=== PATIENT | male | born 1935 | race Asian ===

== ENCOUNTER → 2016-05-29 | Outpatient (CLI) | payer OTHER ==
[~2016-05-29] MED LIST: DIAVAN; LIPITOR; METFORMIN
[2016-05-29 09:54] LABS: Basophils # (auto) 0 uL; Basophils % (auto) 0.8 % (0.0-2.0); Eosinophils # (auto) 0.3 uL; Eosinophils % (auto) 6.2 % (0.0-7.0); Hematocrit 45.9 % (41.0-53.0); Hemoglobin 14.8 g/dL (13.5-17.5); Lymphocytes # (auto) 1.4 uL; Lymphocytes % (auto) 25.9 % (10.0-50.0); Mean Corpuscular Hemoglobin 30.4 pg (28.0-32.0); Mean Corpuscular Hgb Conc. 32.3 g/dL (32.0-36.0); Mean Corpuscular Volume 94.3 fL (80.0-100.0); Mean Platelet Volume 8.3 fL (7.4-10.4); Monocytes # (auto) 0.4 uL; Monocytes % (auto) 7.6 % (0.0-12.0); Neutrophils # (auto) 3.2 uL; Neutrophils % (auto) 59.5 % (37.0-80.0); Platelet Count (auto) 210 10^3/uL (140-450); Red Cell Distribution Width 13.7 % (11.6-16.0); White Blood Cell 5.4 10^3/uL (4.4-10.8)
[2016-05-29 10:03] LABS: Urine Bilirubin Negative (Negative); Urine Blood Negative /uL (Negative); Urine Color Yellow (Yellow); Urine Glucose Normal (Normal); Urine Hyaline Cast FEW /lpf (0 - 2); Urine Ketone Negative (Negative); Urine Mucus FEW (None Seen); Urine Nitrite Negative (Negative); Urine RBC <1 /hpf (0 - 3); Urine Squamous Epithelial Cell FEW /hpf (<5); Urine Urobilinogen Normal (Negative)
[2016-05-29 10:12] LABS: Albumin 4.2 g/dL (3.4-5.0); BUN/Creatinine Ratio 14.8; Bilirubin, Total 0.7 mg/dL (0.2-1.0); Calcium 9.3 mg/dL (8.5-10.1); Potassium 3.8 mmol/L (3.5-5.1); Total Protein 8.1 g/dL (6.4-8.2)
== END | disposition home or self-care (01) ==
LOC: LAB 08:28
PROVIDERS: ATTEND Internal Medicine
DX: E11.21 Type 2 diabetes mellitus with diabetic nephropathy (principal); I25.10 Atherosclerotic heart disease of native coronary artery without angina pectoris
CPT/HCPCS: 36415; 80053; 80061; 81001; 82043; 82607; 83036; 84153; 84439; 84443; 85025; 85049; 85652

== ENCOUNTER → 2017-05-27 | Outpatient (CLI) | payer OTHER ==
[2017-05-27 07:40] LABS: Basophils # (auto) 0.1 uL; Basophils % (auto) 1.1 % (0.0-2.0); Eosinophils # (auto) 0.4 uL; Hematocrit 40.8 % (41.0-53.0); Hemoglobin 13.7 g/dL (13.5-17.5); Lymphocytes # (auto) 1.5 uL; Lymphocytes % (auto) 27.2 % (10.0-50.0); Mean Corpuscular Hemoglobin 31.8 pg (28.0-32.0); Mean Corpuscular Hgb Conc. 33.7 g/dL (32.0-36.0); Mean Corpuscular Volume 94.3 fL (80.0-100.0); Monocytes # (auto) 0.5 uL; Monocytes % (auto) 8.8 % (0.0-12.0); Neutrophils % (auto) 55.9 % (37.0-80.0); Nucleated Red Blood Cells % 0.1 %; Platelet Count (auto) 219 10^3/uL (140-450); Red Blood Cells 4.32 10^6/uL (4.5-5.90); Red Cell Distribution Width 13.7 % (11.8-14.3); White Blood Cell 5.4 10^3/uL (4.4-10.8)
[2017-05-27 08:05] LABS: Albumin 3.8 g/dL (3.4-5.0); BUN/Creatinine Ratio 18.2; Bilirubin, Total 0.6 mg/dL (0.2-1.0); Calcium 9.4 mg/dL (8.5-10.1); Potassium 3.9 mmol/L (3.5-5.1); Total Protein 7.6 g/dL (6.4-8.2)
== END | disposition home or self-care (01) ==
LOC: LAB 07:08
PROVIDERS: ATTEND Internal Medicine
DX: E11.9 Type 2 diabetes mellitus without complications (principal); E78.00 Pure hypercholesterolemia, unspecified
CPT/HCPCS: 36415; 80053; 80061; 83036; 85025

== ENCOUNTER → 2018-09-21 | Outpatient (CLI) | payer OTHER ==
[2018-09-21 14:12] LABS: Albumin 3.6 g/dL (3.4-5.0); BUN/Creatinine Ratio 19.2; Calcium 8.7 mg/dL (8.5-10.1); Potassium 3.9 mmol/L (3.5-5.1)
[2018-09-21 14:14] LABS: Bilirubin, Total 0.3 mg/dL (0.2-1.0); Total Protein 7.1 g/dL (6.4-8.2)
== END | disposition home or self-care (01) ==
LOC: LAB 13:19
PROVIDERS: ATTEND Internal Medicine
DX: E11.9 Type 2 diabetes mellitus without complications (principal); I10 Essential (primary) hypertension
CPT/HCPCS: 36415; 80053; 83036

== ENCOUNTER 2019-01-12 13:55 | Inpatient (IN) | payer OTHER | END 2019-01-16 10:54 | disposition home health service (06) | LOC: TELE-WESTW 13:55 | DX: I62.9 Nontraumatic intracranial hemorrhage, unspecified (principal); I63.9 Cerebral infarction, unspecified; E87.1 Hypo-osmolality and hyponatremia; I10 Essential (primary) hypertension; E11.22 Type 2 diabetes mellitus with diabetic chronic kidney disease; I12.9 Hypertensive chronic kidney disease with stage 1 through stage 4 chronic kidney disease, or unspecified chronic kidney disease; I25.10 Atherosclerotic heart disease of native coronary artery without angina pectoris; N18.9 Chronic kidney disease, unspecified; Z95.1 Presence of aortocoronary bypass graft ==

== ENCOUNTER → 2019-02-15 | Outpatient (CLI) | payer OTHER ==
[~2019-02-15] MED LIST changes: +ASPI-231 PO; +ASPI-404 PO; +CALC500C71 PO; +CALC667C PO; -DIAVAN; +GLIM1TAB2 PO; +GLUC-163 PO; +GLUC500T48 PO; +GLYB2.5T8 PO; -LIPITOR; +LOSA-39 PO; +LOVA40TA72 PO; +METF-370 PO; -METFORMIN
== END | disposition home or self-care (01) ==
LOC: LAB 08:56
PROVIDERS: ATTEND Internal Medicine
DX: I69.30 Unspecified sequelae of cerebral infarction (principal)
CPT/HCPCS: 36415; 82565; 84520

== ENCOUNTER 2019-03-15 18:15 | Inpatient (IN) | payer OTHER ==
[~2019-03-15] VITALS: Ht 162.6 cm; Wt 61.7 kg
[~2019-03-15 18:15] MED LIST changes: -ASPI-404 PO; -CALC667C PO; -GLIM1TAB2 PO; -GLUC-163 PO; -LOSA-39 PO
[2019-03-15 18:39] LABS: Basophils # (auto) 0.1 uL; Basophils % (auto) 1.1 % (0.0-2.0); Eosinophils # (auto) 0.3 uL; Eosinophils % (auto) 3.8 % (0.0-7.0); Hematocrit 35.8 % (41.0-53.0); Hemoglobin 12.3 g/dL (13.5-17.5); Lymphocytes # (auto) 1.1 uL; Lymphocytes % (auto) 16.5 % (10.0-50.0); Mean Corpuscular Hemoglobin 32.1 pg (28.0-32.0); Mean Corpuscular Hgb Conc. 34.4 g/dL (32.0-36.0); Mean Corpuscular Volume 93.5 fL (80.0-100.0); Monocytes # (auto) 0.5 uL; Monocytes % (auto) 7.8 % (0.0-12.0); Neutrophils # (auto) 4.9 uL; Neutrophils % (auto) 70.8 % (37.0-80.0); Platelet Count (auto) 205 10^3/uL (140-450); Red Blood Cells 3.83 10^6/uL (4.5-5.90); Red Cell Distribution Width 14.1 % (11.8-14.3); White Blood Cell 6.9 10^3/uL (4.4-10.8)
[2019-03-15 18:56] LABS: Albumin 3.9 g/dL (3.4-5.0); Calcium 9.3 mg/dL (8.5-10.1)
[2019-03-15 19:00] LABS: BUN/Creatinine Ratio 15.5; Bilirubin, Total 0.4 mg/dL (0.2-1.0); Total Protein 7.7 g/dL (6.4-8.2)
[2019-03-15 19:01] LABS: Magnesium 1.6 mg/dL (1.6-2.6)
[2019-03-15] MEDS ORDERED: MORPHINE SULF INJ 2 MG/ML SYRINGE 1ML IV ONE (20:00)
[2019-03-15] MEDS ORDERED: ONDANSETRON HCL 4 MG/2 ML VIAL IV ONE (20:00)
[2019-03-15] MEDS ORDERED: cloNIDine HCL 0.1 MG TAB PO ONE (20:00)
[2019-03-15] MEDS ORDERED: ONDANSETRON HCL 4 MG/2 ML VIAL IV PRN (21:30)
[2019-03-15] MEDS ORDERED: DOCUSATE SOD 100 MG CAP PO PRN (21:30)
[2019-03-15] MEDS ORDERED: TEMAZEPAM 15 MG CAP PO PRN (21:30)
[2019-03-15] MEDS ORDERED: DEXTROSE (50%) 50ML SYRG IV PRN (21:30)
[2019-03-15] MEDS ORDERED: ACETAMINOPHEN 325 MG TAB PO PRN (21:30)
[2019-03-15] MEDS: hydrALAZINE HCL 25 MG TAB PO SCH ×2 (22:00→22:40)
[2019-03-15 22:10] VITALS: BP 167/82
--- NOTE | 2019-03-15 22:10 | NUR ---
MS admit from ER KASIE ALLEN admitted to MS after SBAR received. Patient oriented to SHRUTHI LANE RN primary RN, unit med surg, room 18-A, bed, and unit policies regarding patient care and visiting hours. Patient weighed by bedscale and encouraged to call if he needs something. All questions and concerns addressed, patient verbalized understanding. Note: at bedside. Fall and safety precautions in place. Call light within reach.
[2019-03-15] MEDS: FAMOTIDINE 20 MG TAB PO SCH (22:40)
[2019-03-15] MEDS: ATORVASTATIN 20 MG TAB PO SCH (22:40)
[2019-03-15 23:40] VITALS: BP 103/46
[2019-03-16] MEDS: InsuLIN REG 1unit/0.01ml Soln (100units/ml) SC SCH ×5 (00:06→23:45)
[2019-03-16] MEDS: ACCU-CHEK COMFORT CURVE STRIP VI SCH ×5 (00:07→23:46)
--- NOTE | 2019-03-16 00:07 | NUR ---
HOSPITALIST Paged hospitalist regarding patient's request for pain medication. Awaiting call back
--- NOTE | 2019-03-16 01:14 | NUR ---
HOSPITALIST Received call back from hospitalist Tiago Paiz NP. New orders received, read back and verified. Will input and carry out
[2019-03-16] MEDS: HYDROcodone-ACET 5/325MG TAB PO PRN ×2 (01:39→08:39)
--- NOTE | 2019-03-16 01:55 | NUR ---
URINE Urine sample obtained and sent to lab via bullet.
[2019-03-16 02:00] LABS: Urine WBC None Seen /hpf (0 - 3)
[2019-03-16 02:38] LABS: Urine Bacteria NONE SEEN /hpf (None Seen); Urine Blood Negative /uL (Negative); Urine Hyaline Cast FEW /lpf (0 - 2); Urine Specific Gravity 1.006 (1.001-1.035)
[2019-03-16] MEDS ORDERED: LOSA-39 PO (03:16)
[2019-03-16] MEDS ORDERED: CALC667C PO (03:16)
[2019-03-16] MEDS ORDERED: GLUC-163 PO (03:16)
[2019-03-16] MEDS ORDERED: METF-370 PO (03:16)
[2019-03-16] MEDS ORDERED: ASPI-404 PO (03:16)
[2019-03-16] MEDS ORDERED: LOVA40TA72 PO (03:16)
[2019-03-16] MEDS ORDERED: GLIM1TAB2 PO (03:16)
[2019-03-16 05:18] VITALS: BP 104/47
--- NOTE | 2019-03-16 08:15 | NUR ---
Opening Note Assumed care of patient. He is A & O x4, no s/s of distress at this time. Patient c/o pain to the left hip. POC discussed with patient, he agrees. Patient has not had a bowel movement in a week, he is requesting Dulcolax that he takes at home. Patient is also requesting a stronger pain medication for his hip pain, it only hurts when he moves. Bed is in lowest locked position, call light within reach, bed rails up x2, bed alarm on. Will continue to monitor Q1h and PRN.
[2019-03-16 09:00] VITALS: BP 164/80
[2019-03-16] MEDS: FAMOTIDINE 20 MG TAB PO SCH ×2 (09:19→21:41)
[2019-03-16] MEDS: HCTZ 25 MG TAB PO SCH (09:21)
[2019-03-16] MEDS: hydrALAZINE HCL 25 MG TAB PO SCH ×2 (09:21→21:41)
[2019-03-16] MEDS: ENOXAPARIN SOD 40 MG/0.4 ML SYRINGE SC SCH (09:22)
[2019-03-16] MEDS: LOSARTAN POTASSIUM 50 MG TAB PO SCH (09:22)
--- NOTE | 2019-03-16 09:38 | NUR ---
Dr. Maddox at bedside Will upgrade patient to TELE, orders received, read back and verified. MD will order stool softener and pain medication.
[2019-03-16] MEDS ORDERED: BISACODYL 5 MG EC TAB PO ONE (10:30)
[2019-03-16] MEDS ORDERED: POLYETHYLENE GLYCOL 17 GM PWDR PO ONE (10:30)
[2019-03-16] MEDS ORDERED: BISACODYL 5 MG EC TAB PO PRN (10:30)
[2019-03-16] MEDS ORDERED: NITROGLYCERIN 0.4 MG SL TAB SL PRN ×2 (10:45)
[2019-03-16] MEDS ORDERED: MORPHINE SULF INJ 2 MG/ML SYRINGE 1ML IV PRN ×3 (10:45→11:00)
[2019-03-16] MEDS ORDERED: ASPirin 81 mg TAB PO ONE (11:15)
[2019-03-16 11:18] LABS: Albumin 3.6 g/dL (3.4-5.0); Potassium 4.2 mmol/L (3.5-5.1)
[2019-03-16 11:21] LABS: Bilirubin, Total 0.6 mg/dL (0.2-1.0); Total Protein 7.1 g/dL (6.4-8.2)
[2019-03-16 11:36] LABS: Free T4 (Free Thyroxine) 1.09 ng/dL (0.89-1.76)
[2019-03-16 11:37] LABS: Folate (Folic Acid) 14.53 ng/mL (5.38-24)
[2019-03-16] MEDS: MAGNESIUM SULFATE 1GM/100ML 100 ML IV SCH ×3 (11:38→15:56)
[2019-03-16] MEDS: traMADol HCL 50 MG TAB PO PRN ×2 (11:39→18:04)
[2019-03-16 11:45] LABS: Magnesium 1.8 mg/dL (1.6-2.6)
[2019-03-16] MEDS ORDERED: IOHEXOL 350 MG/ML 100ML IJ ONE (12:42)
[2019-03-16 13:00] VITALS: BP 130/60
[2019-03-16] MEDS: SODIUM CHLOR 0.9% PF (SALINE LOCK) 10ML VIAL/SYR IV SCH ×2 (14:00→22:00)
--- NOTE | 2019-03-16 14:28 | NUR ---
Placed patient on tele monitor Patient on tele box 42, SR with 1st degree AVB with BBB, HR 57. Will continue to monitor per Dr. Maddox orders.
--- NOTE | 2019-03-16 16:51 | NUR ---
SS consult to discuss d/c planning for help at home with the spouse but no answer to call. Per pt spouse will be back on tomorrow. SS will followup at that time. Addendum: 03/16/19 at 1652 by CAITLIN FOUNTAIN SS Amended: Links added.
[2019-03-16 17:00] VITALS: BP 145/69
--- NOTE | 2019-03-16 19:15 | NUR ---
Opening Shift Note Assumed care of patient, AOx4. No S/S of distress/SOB. Fall and safety precautions initiated. Call light within reach. Instructed on POC and to call for assist PRN, will continue to monitor for changes Q1hr and PRN.
[2019-03-16] MEDS: ATORVASTATIN 20 MG TAB PO SCH (21:41)
[2019-03-16 21:58] VITALS: BP 139/71
[2019-03-17] VITALS (7 sets, daily range): BP systolic 131–189; BP diastolic 63–83
[2019-03-17 04:08] LABS: RPR Non Reactive (Non Reactive)
[2019-03-17] MEDS: InsuLIN REG 1unit/0.01ml Soln (100units/ml) SC SCH ×4 (06:00→23:59)
[2019-03-17] MEDS: ACCU-CHEK COMFORT CURVE STRIP VI SCH ×4 (06:53→23:59)
[2019-03-17] MEDS: SODIUM CHLOR 0.9% PF (SALINE LOCK) 10ML VIAL/SYR IV SCH ×3 (06:54→22:53)
--- NOTE | 2019-03-17 08:10 | NUR ---
Opening Note Assumed care of patient, he is A& O x4, no s/s of distress at this time. POC discussed with patient. C/O pain to the left hip, MD aware, will medicate per orders. Patient is otherwise comfortable at this time. Bed is in lowest, locked position, call light within reach, bed rails up x2, bed alarm on. Personal belonging within reach. Will continue to monitor Q1h and PRN.
[2019-03-17] MEDS: POLYETHYLENE GLYCOL 17 GM PWDR PO SCH (10:00)
[2019-03-17] MEDS: FAMOTIDINE 20 MG TAB PO SCH ×2 (10:35→21:26)
[2019-03-17] MEDS: ASPirin 81 mg TAB PO SCH (10:35)
[2019-03-17] MEDS: traMADol HCL 50 MG TAB PO PRN ×2 (10:36→16:47)
[2019-03-17] MEDS: hydrALAZINE HCL 25 MG TAB PO SCH ×2 (10:42→21:26)
[2019-03-17] MEDS: LOSARTAN POTASSIUM 50 MG TAB PO SCH (10:43)
[2019-03-17] MEDS: HCTZ 25 MG TAB PO SCH (10:45)
[2019-03-17] MEDS: ENOXAPARIN SOD 40 MG/0.4 ML SYRINGE SC SCH (10:50)
[2019-03-17] MEDS: cloNIDine HCL 0.1 MG TAB PO PRN ×2 (13:35→22:48)
--- NOTE | 2019-03-17 13:35 | NUR ---
Clonidine PRN given. Patient BP 202/93, HR 85, will page Dr. Maddox
--- NOTE | 2019-03-17 13:42 | NUR ---
Blood pressure elevated, paged Dr. Maddox, spoke to Dr. Maddox BP 202/93, HR 85, patient with no s/s of distress at this time. Will medicate per doctors orders.
[2019-03-17] MEDS: METOPROLOL TARTRATE 1MG/1ML-5ML VIAL IV PRN (14:15)
--- NOTE | 2019-03-17 14:16 | NUR ---
Metoprolol IV given per orders. BP prior to administration 203/85, HR 85, BP at 1428 192/81 HR 70. Will continue to monitor.
--- NOTE | 2019-03-17 15:00 | NUR ---
Recheck BP 170/78 HR 65, patient with no s/s of distress, equal strength in both hands, no s/s of changes from baseline. Will continue to monitor, and page Dr. Maddox with follow up.
--- NOTE | 2019-03-17 16:18 | NUR ---
Dr. Maddox returned page Notified regarding BP elevation 184/86, HR 54. Orders received, read back and verified. Will medicate per orders.
--- NOTE | 2019-03-17 16:28 | NUR ---
re-assessment I have called and left a message for patients ioana Everett regarding ss consult for needing help at home. Waiting for return call now. Addendum: 03/17/19 at 1628 by Liliane JOYA Amended: Links added.
[2019-03-17] MEDS ORDERED: NIFEdipine ER 30 MG TAB PO ONE (16:30)
[2019-03-17] MEDS ORDERED: CARVEDILOL 3.125 MG TAB PO ONE (16:45)
--- NOTE | 2019-03-17 19:40 | NUR ---
Opening Shift Note Assumed care of patient, awake and alert x4. Patient is complaining of pain to left hip (pain scale 9/10), will medicate patient as ordered by MD. Patient denies headache, dizziness, or blurry vision at this time. Instructed on plan of care and to call for assistance as needed, patient verbalized understanding. Bed is locked in lowest position, side rails x 2 are up, call light is within reach, and bed alarm is on.
--- NOTE | 2019-03-17 20:00 | NUR ---
HOSPITALIST PAGED RE: PAIN MEDICATION Hospitalist paged regarding pain medication. Patient is complaining of 9/10 sharp pain to left hip. Patient has already been medicated with PRN Tramadol and patient reports that the PRN Tramadol pain medication is not alleviating his pain. Patient is requesting something stronger. Awaiting call back.
[2019-03-17] MEDS ORDERED: MORPHINE SULFATE 4 MG/ML SYR/VIAL IV ONE (20:45)
[2019-03-17] MEDS: ATORVASTATIN 20 MG TAB PO SCH (21:26)
[2019-03-17] MEDS: CARVEDILOL 3.125 MG TAB PO SCH (21:29)
[2019-03-18 05:00] VITALS: BP 140/59
[2019-03-18] MEDS: traMADol HCL 50 MG TAB PO PRN ×2 (05:11→19:42)
[2019-03-18] MEDS: ACCU-CHEK COMFORT CURVE STRIP VI SCH ×4 (06:21→23:38)
[2019-03-18] MEDS: InsuLIN REG 1unit/0.01ml Soln (100units/ml) SC SCH ×4 (06:21→23:38)
[2019-03-18] MEDS: SODIUM CHLOR 0.9% PF (SALINE LOCK) 10ML VIAL/SYR IV SCH ×3 (06:21→22:00)
[2019-03-18 06:31] LABS: Basophils # (auto) 0 uL; Basophils % (auto) 0.7 % (0.0-2.0); Eosinophils # (auto) 0.4 uL; Eosinophils % (auto) 7.5 % (0.0-7.0); Hematocrit 35.1 % (41.0-53.0); Hemoglobin 12.1 g/dL (13.5-17.5); Lymphocytes % (auto) 18.3 % (10.0-50.0); Mean Corpuscular Hemoglobin 31.8 pg (28.0-32.0); Mean Corpuscular Hgb Conc. 34.4 g/dL (32.0-36.0); Mean Corpuscular Volume 92.6 fL (80.0-100.0); Monocytes # (auto) 0.6 uL; Monocytes % (auto) 11.3 % (0.0-12.0); Neutrophils # (auto) 3.5 uL; Neutrophils % (auto) 62.2 % (37.0-80.0); Nucleated Red Blood Cells % 0.1 %; Platelet Count (auto) 226 10^3/uL (140-450); Red Blood Cells 3.79 10^6/uL (4.5-5.90); Red Cell Distribution Width 14.1 % (11.8-14.3); White Blood Cell 5.7 10^3/uL (4.4-10.8)
--- NOTE | 2019-03-18 06:56 | NUR ---
IV INSERTION IV access obtained, via clean sterile technique by inserting 22 gauge catheter at right forearm after 1 attempt. IV secured properly. No trauma to site. Patient tolerated well. IV REMOVAL IV to left AC DC'd with clean sterile technique, catheter fully intact. Pressure dressing applied to site. Patient tolerated well.
[2019-03-18 07:07] LABS: BUN/Creatinine Ratio 15.7; Calcium 9.2 mg/dL (8.5-10.1)
[2019-03-18 09:00] VITALS: BP 161/69
[2019-03-18] MEDS ORDERED: HCTZ 25 MG TAB PO SCH (10:00)
[2019-03-18] MEDS: ENOXAPARIN SOD 40 MG/0.4 ML SYRINGE SC SCH (10:30)
[2019-03-18] MEDS: POLYETHYLENE GLYCOL 17 GM PWDR PO SCH (10:30)
[2019-03-18] MEDS: LOSARTAN POTASSIUM 50 MG TAB PO SCH (10:31)
[2019-03-18] MEDS: CARVEDILOL 3.125 MG TAB PO SCH ×2 (10:32→21:14)
[2019-03-18] MEDS: FAMOTIDINE 20 MG TAB PO SCH ×2 (10:32→21:14)
[2019-03-18] MEDS: hydrALAZINE HCL 25 MG TAB PO SCH ×2 (10:33→21:13)
[2019-03-18] MEDS: ASPirin 81 mg TAB PO SCH (10:33)
[2019-03-18 13:00] VITALS: BP 146/80
[2019-03-18] MEDS ORDERED: BISACODYL 5 MG EC TAB PO ONE (13:00)
[2019-03-18] MEDS ORDERED: SODIUM CHLORIDE 0.9% 1,000 ML IV SCH (13:15)
[2019-03-18] MEDS ORDERED: NIFEdipine ER 30 MG TAB PO ONE (13:30)
--- NOTE | 2019-03-18 14:55 | NUR ---
re-assessment I spoke with patients Marguerite at bedside. Per Michelet she is needing extra help at home. I have provided patient and Marguerite resources for [facility], Private pay caregivers, and a place for mom. Patient will also need home health for PT. Marguerite is satisfied with home Pt on discharge. Marguerite verbalized understanding and agreed to discharge plan home. Addendum: 03/23/19 at 1701 by Liliane JOYA Amended: Links added.
--- NOTE | 2019-03-18 16:17 | NUR ---
D/C held Patient was originally going to be discharged today, but his sodium is a little low so a new order for NS at 75 was written. was at bedside and was notified that D/C is being held at this time.
[2019-03-18 17:00] VITALS: BP 167/79
[2019-03-18] MEDS: METOPROLOL TARTRATE 1MG/1ML-5ML VIAL IV PRN (19:13)
[2019-03-18 20:00] VITALS: BP 185/91
--- NOTE | 2019-03-18 20:00 | NUR ---
Opening Shift Note Assumed care of patient, awake and alert. No S/S of distress/SOB. Patient reports 10/10 headache and reports dizziness. Patient's blood pressure is elevated at this time. Will continue to monitor blood pressure and will medicate for hypertension and for pain per MD order. Instructed on POC and to call for assist PRN, will continue to monitor for changes Q1hr and PRN.
[2019-03-18] MEDS: ATORVASTATIN 20 MG TAB PO SCH (21:14)
[2019-03-18 22:00] VITALS: BP 185/91
[2019-03-18] MEDS: cloNIDine HCL 0.1 MG TAB PO PRN (22:27)
--- NOTE | 2019-03-18 23:01 | NUR ---
HOSPITALIST PAGED RE: PAIN MEDICATION Hospitalist paged regarding pain medication. Patient is complaining of 9/10 sharp pain to left hip. Patient has already been medicated with PRN Tramadol and is still complaining of pain. Patients most recent blood pressure was 161/89, heart rate:84. Patient has already been medicated for blood pressure. Awaiting call back.
--- NOTE | 2019-03-18 23:33 | NUR ---
SPOKE TO HOSPITALIST RE: PAIN MEDICATION Notified SIMONA Paiz that patient is complaining of pain to left hip (pain scale 9/10) and patient has already been medicated for pain with PRN tramadol. Orders received for [place] 7.5/325 mg PO x1. Order repeated and verified. Will carry out order as received.
[2019-03-18] MEDS ORDERED: HYDROcodone-ACET 7.5/325MG TAB PO ONE (23:45)
[2019-03-19 05:00] VITALS: BP 140/73
[2019-03-19] MEDS: SODIUM CHLOR 0.9% PF (SALINE LOCK) 10ML VIAL/SYR IV SCH ×3 (06:01→22:00)
[2019-03-19] MEDS: ACCU-CHEK COMFORT CURVE STRIP VI SCH ×3 (06:09→18:37)
[2019-03-19] MEDS: InsuLIN REG 1unit/0.01ml Soln (100units/ml) SC SCH ×3 (06:18→18:37)
[2019-03-19] MEDS: traMADol HCL 50 MG TAB PO PRN ×2 (06:18→20:33)
[2019-03-19 06:23] VITALS: BP 114/55
--- NOTE | 2019-03-19 07:28 | NUR ---
CLOSING NOTE Patient is laying in bed. Respirations even and unlabored. Patient denies headache, denies dizziness, and denies nausea at this time. No signs or symptoms or complaints noted at this time. Endorsed patient care to Theresa BELL.
[2019-03-19 08:39] LABS: BUN/Creatinine Ratio 19.3; Calcium 8.2 mg/dL (8.5-10.1); Magnesium 1.6 mg/dL (1.6-2.6); Potassium 3.7 mmol/L (3.5-5.1)
--- NOTE | 2019-03-19 08:56 | NUR ---
Low Na/MD paged Received call from lab that patient's Na is critical at 117. This nurse paged Dr. Maddox. Waiting for return call.
[2019-03-19 09:00] VITALS: BP 116/58
[2019-03-19] MEDS: ASPirin 81 mg TAB PO SCH (09:40)
[2019-03-19] MEDS: FAMOTIDINE 20 MG TAB PO SCH ×2 (09:40→22:43)
[2019-03-19] MEDS: hydrALAZINE HCL 25 MG TAB PO SCH ×2 (09:41→22:00)
[2019-03-19] MEDS: CARVEDILOL 3.125 MG TAB PO SCH ×2 (09:42→22:00)
[2019-03-19] MEDS: LOSARTAN POTASSIUM 50 MG TAB PO SCH (09:43)
[2019-03-19] MEDS: ENOXAPARIN SOD 40 MG/0.4 ML SYRINGE SC SCH (09:43)
[2019-03-19] MEDS: POLYETHYLENE GLYCOL 17 GM PWDR PO SCH (09:44)
[2019-03-19] MEDS ORDERED: NIFEdipine ER 30 MG TAB PO SCH (10:00)
[2019-03-19] MEDS ORDERED: SODIUM CHLORIDE 0.9% 1,000 ML IV SCH (10:15)
[2019-03-19] MEDS ORDERED: SODIUM CHL 3% 500 ML IV ONE (11:30)
[2019-03-19] MEDS ORDERED: FUROSEMIDE 20 MG/2 ML VIAL IV ONE (12:15)
--- NOTE | 2019-03-19 13:00 | NUR ---
Elder Inserted Elder catheter for urine labs and strict I&Os. Clear yellow urine return. Patient tolerated well.
[2019-03-19 13:20] VITALS: BP 122/54
[2019-03-19] MEDS: MAGNESIUM SULFATE 1GM/100ML 100 ML IV SCH ×5 (13:33→23:57)
[2019-03-19 13:38] LABS: Urine Bacteria MOD /hpf (None Seen); Urine Blood TRACE /uL (Negative); Urine Specific Gravity 1.012 (1.001-1.035); Urine WBC 3 /hpf (0 - 3)
--- NOTE | 2019-03-19 13:45 | NUR ---
Urine/blood Urine is red/yellow. Patient denies any pain to his penis or bladder. This nurse flushed the catheter with 10 cc NS and emptied the Elder bag. Will continue to monitor. Charge nurse also aware.
--- NOTE | 2019-03-19 14:32 | NUR ---
Nutrition Assessment Notes please see attached link for complete assessment Est. Needs based on BW (61 kg): 4422-5399 kcal (25-30 kcal/kgBW), 61-73 gms pro (1.0-1.2 gms/kgBW). Will continue to monitor pertinent labs and reassess nutrient need prn Addendum: 03/19/19 at [address] Amended: Links added.
[2019-03-19 15:44] LABS: BUN/Creatinine Ratio 22.2; Calcium 8.8 mg/dL (8.5-10.1); Potassium 3.7 mmol/L (3.5-5.1)
--- NOTE | 2019-03-19 16:37 | NUR ---
D/C Planning Per SS consult for home health physical therapy. Pt does not meet criteria for home health. Informed ARABELLA Cardenas Pt does not meet criteria for home health Physical therapy however, Pt is able to do outpatient physical therapy.
[2019-03-19 17:00] VITALS: BP 116/51
--- NOTE | 2019-03-19 17:30 | NUR ---
Dr. Staples notified/Blood in urine Called and notified Dr. Staples of blood in the urine. She said to put in a urology consult for retention due to patient having very little output this morning and this nurse getting 675 cc urine when Elder was inserted.
--- NOTE | 2019-03-19 17:56 | NUR ---
IV insertion/Mg Sulf started Several nurses attempted IV start unsuccessfully. Charge nurse, Wayne, was able to start a new IV in RFA. Mag Sulfate was started very late due to this reason. First bag started. Will pass along to next shift the other 2 bags that were ordered.
--- NOTE | 2019-03-19 19:30 | NUR ---
OPENING SHIFT NOTE Assumed care of patient who is A&Ox3. Currently on RA with no s/s of distress/SOB. Reports 8/10 pain in left hip. Will medicate according to MD orders. Elder catheter in place. Patent and draining red/brown urine. Bag is hung below the level of the bladder. Patient denies pain associated with [place]. Patient ambulates with a walker at baseline, but is currently on bedrest while inpatient. Bed alarm on for patient safety. POC discussed with patient who verbalizes understanding. Bed is in low locked position and side rails up x2. Call light is within reach and patient encouraged to call for assistance when needed. Will continue to monitor for changes PRN.
[2019-03-19] MEDS ORDERED: MAGNESIUM SULFATE 1GM/100ML 100 ML IV ONE ×2 (20:30→23:50)
[2019-03-19 22:00] VITALS: BP 105/48
[2019-03-19] MEDS: ATORVASTATIN 20 MG TAB PO SCH (22:43)
[2019-03-20] MEDS: ACCU-CHEK COMFORT CURVE STRIP VI SCH ×5 (00:14→23:32)
[2019-03-20] MEDS: InsuLIN REG 1unit/0.01ml Soln (100units/ml) SC SCH ×5 (00:22→23:32)
[2019-03-20 05:00] VITALS: BP 121/64
[2019-03-20] MEDS: SODIUM CHLOR 0.9% PF (SALINE LOCK) 10ML VIAL/SYR IV SCH ×3 (05:45→22:00)
[2019-03-20 05:53] LABS: Basophils # (auto) 0 uL; Basophils % (auto) 0.3 % (0.0-2.0); Eosinophils # (auto) 0.1 uL; Eosinophils % (auto) 0.9 % (0.0-7.0); Hematocrit 34.5 % (41.0-53.0); Hemoglobin 12.2 g/dL (13.5-17.5); Lymphocytes # (auto) 1.1 uL; Lymphocytes % (auto) 15.5 % (10.0-50.0); Mean Corpuscular Hemoglobin 32.1 pg (28.0-32.0); Mean Corpuscular Hgb Conc. 35.4 g/dL (32.0-36.0); Mean Corpuscular Volume 90.6 fL (80.0-100.0); Monocytes # (auto) 0.9 uL; Monocytes % (auto) 12.6 % (0.0-12.0); Neutrophils # (auto) 5.3 uL; Neutrophils % (auto) 70.7 % (37.0-80.0); Nucleated Red Blood Cells % 0.1 %; Platelet Count (auto) 235 10^3/uL (140-450); Red Cell Distribution Width 13.8 % (11.8-14.3); White Blood Cell 7.4 10^3/uL (4.4-10.8)
[2019-03-20 06:10] LABS: Albumin 3.5 g/dL (3.4-5.0); Calcium 8.5 mg/dL (8.5-10.1); Potassium 3.3 mmol/L (3.5-5.1)
[2019-03-20 06:14] LABS: Total Protein 6.8 g/dL (6.4-8.2)
[2019-03-20 06:16] LABS: Bilirubin, Total 0.8 mg/dL (0.2-1.0)
--- NOTE | 2019-03-20 07:30 | NUR ---
Opening Shift Note Assumed care of patient, awake and alert X4. No S/S of distress/SOB or pain. Instructed on POC and to call for assist PRN, will continue to monitor for changes Q1hr and PRN.
[2019-03-20 09:00] VITALS: BP 131/63
[2019-03-20] MEDS ORDERED: FUROSEMIDE 40 MG/4 ML VIAL IV ONE (09:00)
[2019-03-20] MEDS: hydrALAZINE HCL 25 MG TAB PO SCH ×2 (10:00→22:24)
[2019-03-20] MEDS: POLYETHYLENE GLYCOL 17 GM PWDR PO SCH (10:00)
[2019-03-20] MEDS: ENOXAPARIN SOD 40 MG/0.4 ML SYRINGE SC SCH (10:41)
[2019-03-20] MEDS: LOSARTAN POTASSIUM 50 MG TAB PO SCH (10:41)
[2019-03-20] MEDS: POTASSIUM CHL 20 Meq TABLET PO SCH ×2 (10:42→12:57)
[2019-03-20] MEDS: FAMOTIDINE 20 MG TAB PO SCH ×2 (10:42→22:24)
[2019-03-20] MEDS: NIFEdipine ER 30 MG TAB PO SCH (10:43)
[2019-03-20] MEDS: ASPirin 81 mg TAB PO SCH (10:43)
[2019-03-20] MEDS: CARVEDILOL 3.125 MG TAB PO SCH ×2 (10:43→22:00)
[2019-03-20] MEDS: DEMECLOCYCLINE HCL 150 MG TAB PO SCH ×2 (12:55→17:09)
[2019-03-20 13:00] VITALS: BP 119/55
--- NOTE | 2019-03-20 14:10 | NUR ---
INFORMED Jacque ROJAS OF URINALYSIS RESULTS. RECEIVED NO NEW ORDERS AT THIS TIME. WILL CONTINUE CARE.
[2019-03-20 17:00] VITALS: BP 95/64
[2019-03-20] MEDS: traMADol HCL 50 MG TAB PO PRN ×2 (17:09→22:25)
[2019-03-20 18:52] VITALS: BP 117/53
--- NOTE | 2019-03-20 19:15 | NUR ---
Assumed care of patient who is A&O x4. Currently on RA with no s/s of distress or SOB. Reports 6/10 left hip pain. Requesting stronger pain medication, stating that "the tramadol does not really help". Will notify hospitalist. Patient also requesting sleeping pill to be given later with scheduled medications. Patient states that he ambulated today with PT but uses a waker at baseline. Elder catheter is intact and patent. Draining clear yellow urine to gravity. POC discussed with patient who verbalizes understanding. Will enforce 1000ml fluid restriction. Bed is in low locked position with side rails up x2. Call light is within reach and patient encouraged to call for assistance when needed. Will continue to monitor for changes PRN.
[2019-03-20 22:00] VITALS: BP 122/57
[2019-03-20] MEDS: ATORVASTATIN 20 MG TAB PO SCH (22:00)
--- NOTE | 2019-03-20 23:40 | NUR ---
Code Assist Patient is resting in bed with eyes closed. Unarousable to name and vigorous shaking. Respirations are 16, BP 55/26, heart rate 47 spo2 98% on RA. Charge nurse ARABELLA Graves notified. Patient making an attempt to open eyes, however remains lethargic. Hospitalist paged by this RN at [phone]. Code assist called by Ely BELL at this time due to heart rate of 37. Patient placed on bedside O2 @2lpm. Upon arrival of code assist team, patient placed on cardiac monitoring and 0.2mg Narcan administered. 500ml bolus of NS initiated. Patient attempting to open eyes and yawning.
[2019-03-20] MEDS ORDERED: NALOXONE HCL 0.4 MG/ML VIAL ONE (23:53)
--- NOTE | 2019-03-20 23:54 | NUR ---
V/S reassessed and BP is 70/33, heart rate 50, spo2 100% Patient remains lethargic with increasing responsiveness. Code assist cancelled at this time. Patient is moaning and turning head. Orders received from on-call hospitalistDenzel to D/C An. Will follow through. Will continue to monitor patient for increasing responsiveness.
--- NOTE | 2019-03-21 00:14 | NUR ---
V/S BP: 97/47 heart rate 56, spo2 100% on 2L NC. Patient is moving head side to side, coughing and moaning. Continue monitoring
[2019-03-21] MEDS ORDERED: SODIUM CHLORIDE 0.9% 500 ML IV ONE (00:15)
--- NOTE | 2019-03-21 00:34 | NUR ---
V/S BP: 111/52, HR: 56 Spo2:100% on 2L NC. Respiration rate 16. Patient's eyes are closed. Mild movements of facial muscles noted. Bolus now complete. Will continue monitoring.
[2019-03-21] MEDS ORDERED: NALOXONE HCL 0.4 MG/ML VIAL IV ONE ×2 (01:00)
--- NOTE | 2019-03-21 01:46 | NUR ---
v/s BP: 118/65, Heart rate 57, Spo2 100% on 2L NC, respirations 16. Patient continues to be sleepy with eyes closed. Quiet moans and movements of facial muscles and mouth noted.
--- NOTE | 2019-03-21 03:06 | NUR ---
Rounds Patient remains drowsy. Attempts to open eyes to name. BP: 123/60, Heart rate 61, Resp rate: 16, Spo2: 100% on 2L NC.
[2019-03-21 04:45] VITALS: BP 120/51
--- NOTE | 2019-03-21 05:35 | NUR ---
Rounds Patient is resting in bed with eyes closed. Arouses to name and touch. Able to answer questions. BP: 126/64, heart rate: 60, Spo2 98% on RA. BG 130.
[2019-03-21] MEDS: ACCU-CHEK COMFORT CURVE STRIP VI SCH ×3 (05:38→18:09)
[2019-03-21] MEDS: DEMECLOCYCLINE HCL 150 MG TAB PO SCH ×4 (05:38→18:00)
[2019-03-21] MEDS: SODIUM CHLOR 0.9% PF (SALINE LOCK) 10ML VIAL/SYR IV SCH ×3 (05:38→21:49)
[2019-03-21] MEDS: InsuLIN REG 1unit/0.01ml Soln (100units/ml) SC SCH ×3 (05:39→18:00)
[2019-03-21 06:43] LABS: Calcium 7.7 mg/dL (8.5-10.1); Potassium 3.6 mmol/L (3.5-5.1)
[2019-03-21 06:50] LABS: BUN/Creatinine Ratio 32.1
[2019-03-21 09:00] VITALS: BP 130/62
[2019-03-21] MEDS: hydrALAZINE HCL 25 MG TAB PO SCH ×2 (10:00→21:51)
[2019-03-21] MEDS: POLYETHYLENE GLYCOL 17 GM PWDR PO SCH (10:00)
[2019-03-21] MEDS: ENOXAPARIN SOD 40 MG/0.4 ML SYRINGE SC SCH (10:19)
[2019-03-21] MEDS: NIFEdipine ER 30 MG TAB PO SCH (10:20)
[2019-03-21] MEDS: LOSARTAN POTASSIUM 50 MG TAB PO SCH (10:20)
[2019-03-21] MEDS: FAMOTIDINE 20 MG TAB PO SCH ×2 (10:20→21:48)
[2019-03-21] MEDS: CARVEDILOL 3.125 MG TAB PO SCH ×2 (10:21→21:52)
[2019-03-21] MEDS: ASPirin 81 mg TAB PO SCH (10:21)
[2019-03-21] MEDS: POTASSIUM CHL 20 Meq TABLET PO SCH ×2 (10:45→12:41)
[2019-03-21] MEDS ORDERED: cefTRIAXone 1GM/50ML D5W 50 ML IV ONE (11:00)
[2019-03-21 13:00] VITALS: BP 146/79
[2019-03-21 17:00] VITALS: BP 143/66
--- NOTE | 2019-03-21 17:45 | NUR ---
IV insertion IV access obtained, via clean sterile technique by inserting 20 gauge catheter at L UPPER ARM after 1 attempt(s). IV secured properly. No trauma to site. Patient tolerated well. NOTE:
--- NOTE | 2019-03-21 18:00 | NUR ---
PATIENT SCHEDULED TO GO DOWN STAIRS FOR CT. UNABLE TO GIVE MEDS BECAUSE OF NPO STATUS.
--- NOTE | 2019-03-21 18:34 | NUR ---
SPOKE TO Jing GONZALEZ REGARDING PINK URINE IN REYES CATHETER. INSTRUCTED TO HOLD LOVENOX AND APPLY SCD. WILL FOLLOW THROUGH.
--- NOTE | 2019-03-21 18:45 | NUR ---
WALKED INTO PATIENT ROOM AND PATIENT WAS FOUNDING EATING FOOD. REINFORCED INSTRUCTION THAT PATIENT CANNOT EAT BEFORE PROCEDURE. VERBALIZED UNDERSTANDING. INFORMED CARTOGRAPHY TEACHER. STATED TO WAIT ANOTHER 4-6 HOURS.
--- NOTE | 2019-03-21 19:25 | NUR ---
RECEIVED PATIENT AWAKE, ALERT, ORIENTED X4. NO S/S OF RESPIRATORY DISTRESS. ORIENTED ON PLAN OF CARE. BED IS LOCKED ND IN LOWEST POSITION, SIDE RAILS UP X2, BED ALARM ON. CALL LIGHT WITHIN REACH. WILL CONTINUE TO MONITOR
[2019-03-21 21:38] VITALS: BP 119/57
[2019-03-21] MEDS: ATORVASTATIN 20 MG TAB PO SCH (21:48)
[2019-03-22] MEDS: ACCU-CHEK COMFORT CURVE STRIP VI SCH ×4 (00:02→17:30)
[2019-03-22] MEDS: DEMECLOCYCLINE HCL 150 MG TAB PO SCH ×4 (00:11→17:30)
[2019-03-22] MEDS: traMADol HCL 50 MG TAB PO PRN (02:47)
[2019-03-22 04:49] VITALS: BP 150/58
[2019-03-22] MEDS: SODIUM CHLOR 0.9% PF (SALINE LOCK) 10ML VIAL/SYR IV SCH ×3 (05:22→21:39)
[2019-03-22] MEDS: InsuLIN REG 1unit/0.01ml Soln (100units/ml) SC SCH ×4 (05:51→17:31)
[2019-03-22 06:01] LABS: Magnesium 2.5 mg/dL (1.6-2.6); Potassium 4.2 mmol/L (3.5-5.1)
[2019-03-22 06:03] LABS: BUN/Creatinine Ratio 31.6; Phosphorus 1.2 mg/dL (2.5-4.90)
[2019-03-22] MEDS ORDERED: IOHEXOL 300 MG/ML 100ML BOTTLE IJ ONE (06:29)
--- NOTE | 2019-03-22 07:19 | NUR ---
CARE ENDORSED TO AM SHIFT RN
[2019-03-22 09:00] VITALS: BP 158/70
[2019-03-22] MEDS: cefTRIAXone 1GM/50ML D5W 50 ML IV SCH (09:02)
[2019-03-22] MEDS ORDERED: SODIUM PHOSPHATES 40 MEQ in D5W 5% 250 ML IV ONE ×2 (10:00→11:00)
[2019-03-22] MEDS: NIFEdipine ER 30 MG TAB PO SCH (10:26)
[2019-03-22] MEDS: POTASSIUM CHL 20 Meq TABLET PO SCH ×2 (10:26→12:13)
[2019-03-22] MEDS: ASPirin 81 mg TAB PO SCH (10:26)
[2019-03-22] MEDS: FAMOTIDINE 20 MG TAB PO SCH ×2 (10:27→21:35)
[2019-03-22] MEDS: LOSARTAN POTASSIUM 50 MG TAB PO SCH (10:27)
[2019-03-22] MEDS: hydrALAZINE HCL 25 MG TAB PO SCH ×2 (10:27→21:35)
[2019-03-22] MEDS: POLYETHYLENE GLYCOL 17 GM PWDR PO SCH (10:28)
[2019-03-22] MEDS: CARVEDILOL 3.125 MG TAB PO SCH ×2 (10:28→21:38)
--- NOTE | 2019-03-22 10:45 | NUR ---
PT SEEN BY DR. ROJAS HE ORDERED INCENTIVE SPIROMETER AND NEUROLOGY CONSULT FOR CVA.
--- NOTE | 2019-03-22 11:20 | NUR ---
PT HAD PHYSICAL THERAPY TO WALK HIM BUT HAD A LARGE DIARRHEA IN THE FLOOR, PT MADE CLEAN AND COMFORTABLE BACK ON BED.
[2019-03-22 13:01] VITALS: BP 138/64
[2019-03-22 17:00] VITALS: BP 110/60
--- NOTE | 2019-03-22 18:05 | NUR ---
PT SEEN BY DR. CASTELAN PER DR. CASTELAN PT NEEDS CARDIOLOGY CONSULT FOR CLAUDICATION.
[2019-03-22 21:00] VITALS: BP 121/57
[2019-03-22] MEDS: ATORVASTATIN 20 MG TAB PO SCH (21:35)
--- NOTE | 2019-03-22 22:00 | NUR ---
URINE SAMPLE FOR URINE PROTEIN AND CREATININE SENT TO LAB
[2019-03-22 22:44] LABS: Protein, Urine 34.1 mg/dL (0.0-11.9)
[2019-03-23] MEDS: DEMECLOCYCLINE HCL 150 MG TAB PO SCH ×3 (00:04→11:55)
[2019-03-23] MEDS: ACCU-CHEK COMFORT CURVE STRIP VI SCH ×3 (00:04→11:56)
[2019-03-23] MEDS: traMADol HCL 50 MG TAB PO PRN (00:33)
[2019-03-23 04:30] VITALS: BP 145/63
[2019-03-23] MEDS: InsuLIN REG 1unit/0.01ml Soln (100units/ml) SC SCH ×3 (05:22→11:56)
[2019-03-23] MEDS: SODIUM CHLOR 0.9% PF (SALINE LOCK) 10ML VIAL/SYR IV SCH ×2 (05:23→16:29)
[2019-03-23 06:38] LABS: Calcium 8.4 mg/dL (8.5-10.1); Magnesium 2.3 mg/dL (1.6-2.6); Phosphorus 2.2 mg/dL (2.5-4.90)
--- NOTE | 2019-03-23 07:07 | NUR ---
CARE ENDORSED TO AM SHIFT RN
[2019-03-23] MEDS: cefTRIAXone 1GM/50ML D5W 50 ML IV SCH (08:49)
[2019-03-23 09:00] VITALS: BP 166/66
[2019-03-23] MEDS: hydrALAZINE HCL 25 MG TAB PO SCH (09:41)
[2019-03-23] MEDS: LOSARTAN POTASSIUM 50 MG TAB PO SCH (09:42)
[2019-03-23] MEDS: ASPirin 81 mg TAB PO SCH (09:42)
[2019-03-23] MEDS: FAMOTIDINE 20 MG TAB PO SCH (09:42)
[2019-03-23] MEDS: NIFEdipine ER 30 MG TAB PO SCH (09:42)
[2019-03-23] MEDS: CARVEDILOL 3.125 MG TAB PO SCH (09:43)
--- NOTE | 2019-03-23 10:24 | NUR ---
DR. ROJAS AT BEDSIDE PT AND FAMILY MADE AWARE OF THE CT SCAN RESULT. BOW STRING MAKER CONSULT PLACED FOR HOSPICE EVALUATION, PT AND TUYET IS AWARE.
--- NOTE | 2019-03-23 11:40 | NUR ---
re-assessment Dr Maddox called me out of the meeting today to inform me patient has a hospice order and is requesting [facility]. I spoke with patients Marguerite at bedside and offered her a list of medicare providers. Per Marguerite [facility] to provide hospice service. Marguerite stated patient was on service with home health with [place]. Marguerite signed choice letter. Cely SW1 will satisfy order. Addendum: 03/23/19 at 1701 by Liliane JOYA Amended: Links added.
[2019-03-23 13:00] VITALS: BP 145/62
[2019-03-23 13:12] VITALS: BP 166/66
--- NOTE | 2019-03-23 13:40 | NUR ---
PT MADE AWARE DR. ROJAS ORDERED FOR DISCHARGE ON HOME HOSPICE.
--- NOTE | 2019-03-23 14:05 | NUR ---
DR. ROJAS ORDERED FOR PT TO GO HOME WITH THE REYES CATHETER.
--- NOTE | 2019-03-23 14:06 | NUR ---
D/C Planning Per consult for hospice. Per Liliane information and choice letter was given to Pt. Pt requested [facility]. Contact [facility] Ph:( [phone]) Fax:) faxed medical records. Per Marguerite referral has been received and service to start upon d/c day. Informed Marguerite Pt will be discharging today. Contact General transport Ph:) spoke to [facility]. Per [facility] transportation pick up attendant time will be between 16:30-17:30 via [place] [facility] Informed ARABELLA Ortiz. Addendum: 03/23/19 at 1410 by EDISON DRISCOLL Amended: Links added.
[2019-03-23 16:35] VITALS: BP 145/62
[2019-03-23 16:37] VITALS: BP_SYST 139; BP_SYST 166; BP_DIAS 58; BP_DIAS 66
--- NOTE | 2019-03-23 17:40 | NUR ---
Discharge instructions given as ordered. Encourage to follow up with [facility] doctor as instructed. All questions and concerns addressed. Patient verbalized understanding. Medication reconciliation form completed and copy given to patient. IV removed with catheter intact, pressure dressing applied. Telemetry unit returned to ICU. Patient taken to vehicle via wheelchair with all personal belongings, accompanied by general transport staff and family member. No distress noted at time of departure.
== END 2019-03-23 17:40 | disposition hospice, home (50) | DRG 436 ==
LOC: ER 18:15 → MERGE 18:16 → OVERFLOW 18:16 → CENTRAL 22:10 → TELE-CENTR 03-20 23:53
PROVIDERS: ADMIT Nurse Practitioner; ATTEND Internal Medicine
DX: C25.9 Malignant neoplasm of pancreas, unspecified (principal); I50.22 Chronic systolic (congestive) heart failure; E87.1 Hypo-osmolality and hyponatremia; E78.5 Hyperlipidemia, unspecified; I16.0 Hypertensive urgency; I11.0 Hypertensive heart disease with heart failure; I77.1 Stricture of artery; E87.6 Hypokalemia; N28.9 Disorder of kidney and ureter, unspecified; Z51.5 Encounter for palliative care; I25.10 Atherosclerotic heart disease of native coronary artery without angina pectoris; I65.09 Occlusion and stenosis of unspecified vertebral artery; Z79.82 Long term (current) use of aspirin; Z79.899 Other long term (current) drug therapy; Z82.49 Family history of ischemic heart disease and other diseases of the circulatory system; Z83.3 Family history of diabetes mellitus; Z95.1 Presence of aortocoronary bypass graft; Z86.73 Personal history of transient ischemic attack (TIA), and cerebral infarction without residual deficits
CPT/HCPCS: 36415; 70450; 70496; 70498; 71045; 71260; 72192; 74177; 76775; 80048; 80053; 80061; 81001; 82105; 82378; 82533; 82570; 82607; 82746; 82962; 83036; 83735; 83880; 83930; 83935; 84100; 84154; 84156; 84295; 84300; 84439; 84443; 84484; 84550; 85025; 86301; 86592; 93005; 93306; 96361; 96365; 96367; 96375; 97110; 97116; 97163; 97530; G0378; J0696; J1815; J2405; J7060

== ENCOUNTER → 2019-06-17 | Outpatient (CLI) | payer OTHER ==
[~2019-06-17] MED LIST changes: +ASPI-404 PO; +CALC667C PO; +GLIM1TAB3 PO; +GLUC-163 PO; +LOSA-39 PO
== END | disposition home or self-care (01) ==
LOC: LAB 07:18
PROVIDERS: ATTEND Internal Medicine
DX: K86.2 Cyst of pancreas (principal)
CPT/HCPCS: 36415; 82565; 84520

== ENCOUNTER → 2019-06-23 | Outpatient (CLI) | payer OTHER | END | disposition home or self-care (01) | LOC: LAB 07:40 | PROVIDERS: ATTEND Internal Medicine | DX: K86.9 Disease of pancreas, unspecified (principal) | CPT/HCPCS: 86301 ==

== ENCOUNTER → 2020-08-04 | Outpatient (CLI) | payer OTHER ==
[~2020-08-04] MED LIST changes: -ASPI-404 PO; +ASPI-543 PO; +GLIM-5 PO; -GLIM1TAB3 PO
[2020-08-04 14:30] LABS: Albumin 3.5 g/dL (3.4-5.0); Basophils # (auto) 0.1 10 ^3/uL (0-0.2); Basophils % (auto) 1.2 % (0.0-2.0); Calcium 9.2 mg/dL (8.5-10.1); Eosinophils # (auto) 0.3 10 ^3/uL (0-0.8); Eosinophils % (auto) 6.8 % (0.0-7.0); Hematocrit 35.5 % (41.0-53.0); Hemoglobin 11.8 g/dL (13.5-17.5); Lymphocytes # (auto) 1.1 10 ^3/uL (0.4-5.4); Lymphocytes % (auto) 23.8 % (10.0-50.0); Mean Corpuscular Hgb Conc. 33.2 g/dL (32.0-36.0); Mean Corpuscular Volume 93.3 fL (80.0-100.0); Monocytes # (auto) 0.4 10 ^3/uL (0-1.3); Monocytes % (auto) 9.2 % (0.0-12.0); Neutrophils # (auto) 2.8 10 ^3/uL (1.6-8.6); Nucleated Red Blood Cells % 0.1 %; Platelet Count (auto) 254 10^3/uL (140-450); Potassium 4.5 mmol/L (3.5-5.1); Red Blood Cells 3.81 10^6/uL (4.5-5.90); Red Cell Distribution Width 14.9 % (11.8-14.3); White Blood Cell 4.7 10^3/uL (4.4-10.8)
[2020-08-04 14:34] LABS: BUN/Creatinine Ratio 24.2; Bilirubin, Total 0.3 mg/dL (0.2-1.0); Total Protein 7.2 g/dL (6.4-8.2)
[2020-08-04 14:43] LABS: Free T4 (Free Thyroxine) 1.13 ng/dL (0.89-1.76)
[2020-08-04 14:48] LABS: Prostate Specific Antigen 4.38 ng/mL (0.0-4.0)
== END | disposition home or self-care (01) ==
LOC: LAB 13:24
PROVIDERS: ATTEND Internal Medicine
DX: E11.21 Type 2 diabetes mellitus with diabetic nephropathy (principal); E78.5 Hyperlipidemia, unspecified
CPT/HCPCS: 36415; 80053; 80061; 82150; 83036; 84153; 84154; 84439; 84443; 85025; 85652

== ENCOUNTER 2020-08-27 09:07 | Inpatient (IN) | payer OTHER ==
[~2020-08-27] VITALS: Ht 165.1 cm; Wt 72.1 kg
[2020-08-27] VITALS (17 sets, daily range): BP systolic 23–164; BP diastolic 16–74
[2020-08-27] MEDS ORDERED: SODIUM CHLORIDE 0.9% 1,000 ML IV ONE (09:45)
[2020-08-27] MEDS ORDERED: LIDOCAINE 2%HCL (LOCAL ANESTH.) INJ 20ML MDV ONE ×2 (09:47→15:05)
[2020-08-27] MEDS ORDERED: IODIXANOL 320MG/ML 100ML BTL IV ONE (09:47)
[2020-08-27] MEDS ORDERED: HEPARIN IN NS 1000Units/500mL 1,500 ML ONE (09:47)
[2020-08-27] MEDS ORDERED: ANGIOMAX 250 MG VIAL IV ONE (09:48)
[2020-08-27] MEDS ORDERED: fentaNYL CITRATE 100 MCG/2 ML VL ONE ×2 (09:49→15:06)
[2020-08-27] MEDS ORDERED: SODIUM CHL 0.9% 50 ML ONE (09:49)
[2020-08-27] MEDS ORDERED: MIDAZOLAM HCL 1MG/1ML-2 ML VIAL ONE ×2 (09:50→11:31)
[2020-08-27 10:00] LABS: Basophils # (auto) 0 10 ^3/uL (0-0.2); Basophils % (auto) 0.1 % (0.0-2.0); Eosinophils # (auto) 0 10 ^3/uL (0-0.8); Eosinophils % (auto) 0.1 % (0.0-7.0); Hemoglobin 12.8 g/dL (13.5-17.5); Lymphocytes # (auto) 0.6 10 ^3/uL (0.4-5.4); Lymphocytes % (auto) 5.8 % (10.0-50.0); Mean Corpuscular Hemoglobin 31.5 pg (28.0-32.0); Mean Corpuscular Hgb Conc. 33.7 g/dL (32.0-36.0); Mean Corpuscular Volume 93.3 fL (80.0-100.0); Monocytes # (auto) 0.5 10 ^3/uL (0-1.3); Monocytes % (auto) 4.3 % (0.0-12.0); Neutrophils % (auto) 89.7 % (37.0-80.0); Platelet Count (auto) 284 10^3/uL (140-450); Red Blood Cells 4.07 10^6/uL (4.5-5.90); White Blood Cell 11.1 10^3/uL (4.4-10.8)
[2020-08-27 10:04] LABS: Urine Bacteria MOD /hpf (None Seen); Urine Blood Negative /uL (Negative); Urine Hyaline Cast MOD /lpf (0 - 2); Urine Mucus FEW (None Seen); Urine Specific Gravity 1.013 (1.001-1.035); Urine WBC 41 /hpf (0 - 3)
[2020-08-27 10:09] LABS: INR 1.08 (0.9-1.15); Partial Thromboplastin Time 27.9 sec (23.0-31.2)
[2020-08-27 10:16] LABS: BUN/Creatinine Ratio 29.8; Bilirubin, Total 0.5 mg/dL (0.2-1.0); Total Protein 7.8 g/dL (6.4-8.2)
[2020-08-27 10:19] LABS: Magnesium 4.5 mg/dL (1.6-2.6)
[2020-08-27] MEDS ORDERED: METOPROLOL TARTRATE 1MG/1ML-5ML VIAL IV ONE (10:42)
[2020-08-27] MEDS ORDERED: LABETALOL HCL 5 MG/ML 4ML SYRINGE IV PRN (10:45)
[2020-08-27] MEDS ORDERED: LACTATED RINGER'S 2,000 ML IV ONE (10:45)
[2020-08-27] MEDS ORDERED: NITROGLYCERIN 0.4 MG SL TAB SL PRN ×2 (10:45→12:30)
[2020-08-27] MEDS ORDERED: MORPHINE SULF INJ 2 MG/ML SYRINGE 1ML IV PRN ×3 (10:45→12:30)
[2020-08-27 11:32] LABS: Cholesterol 104 mg/dL (< 200); HDL Cholesterol 50 mg/dL (40-59); LDL Cholesterol 45 mg/dL (< 100); Triglycerides 98 mg/dL (< 150)
[2020-08-27] MEDS ORDERED: NOREPINEPHRINE 8 MG/250ML KIT 250 ML IV ONE (11:46)
[2020-08-27] MEDS ORDERED: SODIUM BICARBONATE 8.4% INJ 50ML SYRINGE ONE ×4 (11:47→13:28)
[2020-08-27] MEDS ORDERED: EPINEPHrine HCL 250 ML IV ONE (12:43)
[2020-08-27] MEDS ORDERED: EPINEPHrine HCL 250 ML IV SCH (12:45)
[2020-08-27] MEDS ORDERED: VASOPRESSIN 50 UNITS in D5W 5% 247.5 ML IV SCH (12:45)
[2020-08-27] MEDS ORDERED: cefTRIAXone 1GM/50ML D5W 50 ML IV SCH (13:00)
[2020-08-27] MEDS ORDERED: SODIUM CHLORIDE 0.9% 1,000 ML IV SCH (13:00)
[2020-08-27] MEDS ORDERED: NOREPINEPHRINE 8 MG/250ML KIT 250 ML IV SCH (13:00)
[2020-08-27] MEDS ORDERED: SODIUM BICARBONATE 8.4 % INJ 50ML VIAL IV ONE ×3 (13:00→13:30)
[2020-08-27] MEDS ORDERED: PHENYLEPHRINE IV 250 ML IV ONE (13:57)
[2020-08-27] MEDS ORDERED: metroNIDAZOLE 500MG/100ML 100 ML IV SCH (14:00)
[2020-08-27 14:27] LABS: Hematocrit 37.7 % (41.0-53.0); Mean Corpuscular Hemoglobin 31.2 pg (28.0-32.0); Mean Corpuscular Hgb Conc. 31.8 g/dL (32.0-36.0); Mean Corpuscular Volume 98.3 fL (80.0-100.0); Platelet Count (auto) 252 10^3/uL (140-450); Red Blood Cells 3.83 10^6/uL (4.5-5.90); Red Cell Distribution Width 14.6 % (11.8-14.3); White Blood Cell 2.1 10^3/uL (4.4-10.8)
[2020-08-27 14:35] LABS: Basophils % (manual) 0 (0.0-2.0); Blast Cells 0; Metamyelocytes % 0; Myelocytes % 0; Promyelocytes % 0; Reactive Lymphocytes 0
[2020-08-27 14:42] LABS: Albumin 2.3 g/dL (3.4-5.0); Calcium 9.4 mg/dL (8.5-10.1); Potassium 3.9 mmol/L (3.5-5.1)
[2020-08-27] MEDS ORDERED: SODIUM BICARBONATE 50ML VIAL 150 ML in D5W 5% 1,000 ML IV SCH (14:45)
[2020-08-27] MEDS ORDERED: PHENYLEPHRINE INJ 40 MG in SODIUM CHL 0.9% 246 ML IV SCH (14:45)
[2020-08-27] MEDS ORDERED: NOREPINEPHRINE BITARTRATE 16 MG in SODIUM CHL 0.9% 234 ML IV SCH (14:45)
[2020-08-27] MEDS ORDERED: EPINEPHrine HCL INJECTION 8 MG in D5W 5% 242 ML IV SCH (14:45)
[2020-08-27 14:46] LABS: BUN/Creatinine Ratio 25.8; Bilirubin, Total 0.4 mg/dL (0.2-1.0); Total Protein 6.4 g/dL (6.4-8.2)
[2020-08-27 14:48] LABS: Lactic Acid w/Reflex 14.8 mmol/L (0.4-2.0)
[2020-08-27] MEDS ORDERED: LIDOCAINE HCL 2% TOP JELLY 5ML TOP ONE (15:05)
[2020-08-27] MEDS ORDERED: EPINEPHrine HCL 1 MG/1 ML AMP ONE (15:05)
[2020-08-27] MEDS ORDERED: BENZOCAINE (DENTAL) 20 % SPRAY 60ML MT ONE (15:05)
[2020-08-27] MEDS ORDERED: SODIUM CHLORIDE LOCK 30 ML ONE (15:05)
[2020-08-27] MEDS ORDERED: GLYCOPYRROLATE 0.2 MG/ML 1ML VIAL ONE (15:05)
[2020-08-27] MEDS ORDERED: MIDAZOLAM HCL 5 MG/ML-1ML VIAL ONE (15:06)
[2020-08-27] MEDS ORDERED: OPTISON 3ml Vial for INJ IV ONE (15:06)
[2020-08-27 15:26] LABS: Band Neutrophils % (manual) 2; Eosinophils % (manual) 2 (0-7); Lymphocytes % (manual) 75 (10.0-50.0); Monocytes % (manual) 8 (0-12)
[2020-08-27 15:38] LABS: Magnesium 8.5 mg/dL (1.6-2.6)
[2020-08-27] MEDS ORDERED: DOXYCYCLINE 100MG/250ML 250 ML IV SCH (17:00)
[2020-08-27] MEDS ORDERED: IPRATROPIUM BROM 0.5 MG/2.5ML INH SOL NEB SCH (18:00)
[2020-08-27] MEDS ORDERED: ALBUTEROL SULF 2.5 MG/0.5ML(0.5%) NEB SOLN NEB SCH (18:00)
[2020-08-27] MEDS ORDERED: SODIUM BICARBONATE 8.4% INJ 50ML SYRINGE IV ONE (18:52)
[2020-08-28] MEDS ORDERED: ENOXAPARIN SOD 30 MG/0.3 ML SYRINGE SC SCH (10:00)
[2020-08-28] MEDS ORDERED: PANTOPRAZOLE 40 MG/10 ML VIAL INJ IV SCH (10:00)
== END 2020-08-27 18:53 | DRG 871 ==
LOC: EDBD 09:07 → ER 09:07 → CATH 1 09:40 → DOU IN ICU 09:41
PROVIDERS: ADMIT Internal Medicine; ATTEND Internal Medicine
PROC: 02HV33Z Insertion of Infusion Device into Superior Vena Cava, Percutaneous Approach (ICD-10-PCS; principal; 2020-08-27)
PROC: 0BH17EZ Insertion of Endotracheal Airway into Trachea, Via Natural or Artificial Opening (ICD-10-PCS; 2020-08-27)
PROC: 4A023N7 Measurement of Cardiac Sampling and Pressure, Left Heart, Percutaneous Approach (ICD-10-PCS; 2020-08-27)
PROC: B2111ZZ Fluoroscopy of Multiple Coronary Arteries using Low Osmolar Contrast (ICD-10-PCS; 2020-08-27)
PROC: B2131ZZ Fluoroscopy of Multiple Coronary Artery Bypass Grafts using Low Osmolar Contrast (ICD-10-PCS; 2020-08-27)
PROC: B2151ZZ Fluoroscopy of Left Heart using Low Osmolar Contrast (ICD-10-PCS; 2020-08-27)
PROC: 5A12012 Performance of Cardiac Output, Single, Manual (ICD-10-PCS; 2020-08-27)
PROC: 04HY32Z Insertion of Monitoring Device into Lower Artery, Percutaneous Approach (ICD-10-PCS; 2020-08-27)
DX: A41.9 Sepsis, unspecified organism (principal); G93.41 Metabolic encephalopathy; G93.6 Cerebral edema; I21.19 ST elevation (STEMI) myocardial infarction involving other coronary artery of inferior wall; J69.0 Pneumonitis due to inhalation of food and vomit; J96.01 Acute respiratory failure with hypoxia; E44.1 Mild protein-calorie malnutrition; E87.4 Mixed disorder of acid-base balance; G93.1 Anoxic brain damage, not elsewhere classified; E70.30 Albinism, unspecified; K86.1 Other chronic pancreatitis; N17.9 Acute kidney failure, unspecified; R47.01 Aphasia; E11.22 Type 2 diabetes mellitus with diabetic chronic kidney disease; E11.51 Type 2 diabetes mellitus with diabetic peripheral angiopathy without gangrene; E11.65 Type 2 diabetes mellitus with hyperglycemia; Z20.822 Contact with and (suspected) exposure to COVID-19; Z68.26 Body mass index [BMI] 26.0-26.9, adult; E78.5 Hyperlipidemia, unspecified; E83.42 Hypomagnesemia; E86.0 Dehydration; F03.90 Unspecified dementia, unspecified severity, without behavioral disturbance, psychotic disturbance, mood disturbance, and anxiety; F17.200 Nicotine dependence, unspecified, uncomplicated; G93.89 Other specified disorders of brain; I12.9 Hypertensive chronic kidney disease with stage 1 through stage 4 chronic kidney disease, or unspecified chronic kidney disease; I25.10 Atherosclerotic heart disease of native coronary artery without angina pectoris; I46.9 Cardiac arrest, cause unspecified; K56.41 Fecal impaction; M19.90 Unspecified osteoarthritis, unspecified site; N18.30 Chronic kidney disease, stage 3 unspecified; R65.20 Severe sepsis without septic shock; Z66 Do not resuscitate; Z79.82 Long term (current) use of aspirin; Z79.84 Long term (current) use of oral hypoglycemic drugs; Z82.49 Family history of ischemic heart disease and other diseases of the circulatory system; Z83.3 Family history of diabetes mellitus; Z86.73 Personal history of transient ischemic attack (TIA), and cerebral infarction without residual deficits; Z95.1 Presence of aortocoronary bypass graft; N30.90 Cystitis, unspecified without hematuria
CPT/HCPCS: 36415; 36600; 70450; 71045; 71250; 74176; 80053; 80061; 81001; 82805; 83605; 83735; 83880; 84443; 84484; 85007; 85025; 85027; 85610; 85730; 86850; 86900; 86901; 87040; 87070; 87077; 87086; 87186; 87205; 87426; 93005; 93306; 93458; 94002; 96361; 96365; G0378; J0171; J2250; J7042; J7060; Q9956; Q9967